=== PATIENT | male | born 1980 | race American Indian/Alaskan Native ===

== ENCOUNTER 2017-08-18 03:35 | Emergency (ER) | payer MEDICAID ==
[~2017-08-18 03:35] MED LIST: AMIDATE IV ONE; QUELICIN ONE
[2017-08-18] MEDS ORDERED: NACL 0.9% 1000 ML 1,000 ML ONE (03:42)
[2017-08-18] MEDS ORDERED: NACL 0.9% 1000 ML 1,000 ML IV ONE (03:46)
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
[2017-08-18] MEDS ORDERED: ARTIFICIAL TEARS OPHTH OINT OU PRN (03:47)
[2017-08-18] MEDS ORDERED: VASELINE LIP THERAPY TP PRN (03:47)
[2017-08-18 03:55] LABS: Basophils # (Auto) 0.1 K/mm3 (0.0-0.1); Basophils % (Auto) 0.5 % (0.0-1.8); Eosinophils % (Auto) 0.2 % (0.0-4.3); Hematocrit 45.6 % (35.5-45.6); Hemoglobin 14.8 gm/dl (11.8-15.2); Lymphocytes # (Auto) 3.7 K/mm3 (1.2-5.4); Lymphocytes % (Auto) 37.7 % (13.4-35.0); Mean Corpuscular HGB Conc 32 % (32-34); Mean Corpuscular Volume 77 fl (84-94); Monocytes # (Auto) 1.1 K/mm3 (0.0-0.8); Platelet Count 235 K/mm3 (140-440); Red Blood Count 5.95 M/mm3 (3.65-5.03); Red Cell Distribution Width 14.7 % (13.2-15.2)
[2017-08-18] MEDS ORDERED: DIPRIVAN 10 MG/ML 1,000 MG/100 ML BOTTLE IV SCH (04:00)
[2017-08-18 04:07] LABS: Mean Corpuscular Hemoglobin 25 pg (28-32)
[2017-08-18 04:15] LABS: Alanine Aminotransferase 59 units/L (7-56); Albumin 4.2 g/dL (3.9-5); BUN/Creatinine Ratio 11; Blood Urea Nitrogen 10 mg/dL (9-20); Calcium 8.1 mg/dL (8.4-10.2); Hemolysis Index 23
--- NOTE | 2017-08-18 04:20 | XRay Report ---
FINAL REPORT PROCEDURE: XR CHEST 1V AP TECHNIQUE: Chest radiograph anteroposterior view. CPT 17774 HISTORY: ETT placement COMPARISON: No prior studies are available for comparison. FINDINGS: Heart: Normal. Mediastinum/Vessels: Normal. Lungs/Pleural space: Normal. Bony thorax: No acute osseous abnormality. Life support devices: The endotracheal tube ends 4 centimeters above the carine. IMPRESSION: There is no evidence of an acute cardiopulmonary process. The endotracheal tube is properly positioned..
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
[2017-08-18] MEDS ORDERED: BOOSTRIX IM ONE (04:35)
--- NOTE | 2017-08-18 04:35 | Emergency Department Report ---
Blank Doc - Documentation Documentation: PROCEDURE NOTE: LACERATION REPAIT LEFT ANTERIOR/TEMPORAL SCALP 1- At request of Dr. Schneider laceration repaired. I used a skin stapler and applied 12 starla to approximate large laceration above hairline left anterior (frontal/temporal) scalp 2- good approximation of laceration achieved using starla. Bleeding well controlled. Covered with gauze after. 3- patient was unconscious intubated and sedated during laceration repair
[2017-08-18] MEDS ORDERED: KEPPRA 1,000 MG/NS 0.75% 100ML 1,000 MG/100 ML BAG IV ONE (04:37)
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
[2017-08-18] MEDS ORDERED: VIAFLEX EMPTY CONTAINER IV SCH (06:00)
[2017-08-18] MEDS ORDERED: OSMITROL 20% IV SCH (06:00)
[2017-08-18] MEDS ORDERED: OSMITROL IV SCH (06:00)
[2017-08-18 06:11] VITALS: BP 136/94
[2017-08-18] MEDS ORDERED: VERSED IV ONE (06:22)
[2017-08-18] MEDS ORDERED: VERSED IV NR (06:30)
== END 2017-08-18 06:20 | disposition other institution (70) ==
LOC: ED 03:35
DX: S06.6X0A Traumatic subarachnoid hemorrhage without loss of consciousness, initial encounter (principal); S06.5X0A Traumatic subdural hemorrhage without loss of consciousness, initial encounter; S01.01XA Laceration without foreign body of scalp, initial encounter; F17.200 Nicotine dependence, unspecified, uncomplicated; Y00.XXXA Assault by blunt object, initial encounter; Y93.89 Activity, other specified; Y92.89 Other specified places as the place of occurrence of the external cause; Y99.8 Other external cause status
CPT/HCPCS: 12002; 31500; 36415; 70450; 71045; 72125; 80053; 82803; 85025; 87070; 87205; 90471; 90715; 93005; 93010; 96361; 96365; 96375; 99291; G0480; J0330; J1953; J2150; J2250; J2704; J7030; 80320; 94002

== ENCOUNTER 2019-09-07 15:43 | Emergency (ER) | payer SELFPAY ==
[2019-09-07 16:19] VITALS: BP 143/96
[2019-09-07] MEDS ORDERED: ACETAMINOPHEN 325 MG TAB ONE (17:06)
[2019-09-07] MEDS ORDERED: ACETAMINOPHEN 325 MG TAB PO ONE (17:06)
[2019-09-07] MEDS ORDERED: IBUPROFEN 800 MG TAB PO ONE (20:40)
[2019-09-07] MEDS ORDERED: ONDANSETRON 4 MG ODT TAB PO ONE (20:40)
[2019-09-07] MEDS ORDERED: diphenhydrAMINE 25 MG CAP PO ONE (20:40)
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
== END 2019-09-07 21:20 | disposition home or self-care (01) ==
LOC: ED 15:43
DX: J32.9 Chronic sinusitis, unspecified (principal); R51 Headache; F12.10 Cannabis abuse, uncomplicated; Z87.891 Personal history of nicotine dependence; Z79.1 Long term (current) use of non-steroidal anti-inflammatories (NSAID); Z79.2 Long term (current) use of antibiotics; Z79.899 Other long term (current) drug therapy
CPT/HCPCS: 93005; 93010; 99282; Q0162

== ENCOUNTER 2022-01-09 04:57 | Emergency (ER) | payer OTHER ==
[2022-01-09 05:11] VITALS: BP 126/72
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
== END 2022-01-09 06:12 ==
LOC: EEVIPCON 04:57 → ED 04:57
DX: Z02.89 Encounter for other administrative examinations (principal); Z53.21 Procedure and treatment not carried out due to patient leaving prior to being seen by health care provider
CPT/HCPCS: 99282